=== PATIENT | female | born 1955 | race Caucasian/White ===

== ENCOUNTER 2018-05-27 05:21 | Day surgery (SDC) | payer OTHER ==
[~2018-05-27] VITALS: Ht 160 cm; Wt 72.6 kg
--- NOTE | ~2018-05-27 | O ---
[facility] [place] [address] OPERATIVE REPORT Name: EVELIA COLE Room #: [facility] M.R.#: [id number] Admission: 05/27/18 ������������������ Attend Phys: George Daniel MD Discharge: ������������������ Date of : 55 Report #: [id number] THIS REPORT FOR: //name// CC: LYLE Daniel Physician staff DATE OF SERVICE: 05/27/2018 PREOPERATIVE DIAGNOSES: Chronic cholecystitis with cholelithiasis. POSTOPERATIVE DIAGNOSES: Chronic cholecystitis with cholelithiasis. PROCEDURES PERFORMED: Laparoscopic cholecystectomy with cholangiogram. ANESTHESIA: General. SURGEON: George Daniel M.D. COMPLICATIONS: None. ESTIMATED BLOOD LOSS: 10 mL. DESCRIPTION OF PROCEDURE: With the patient under general anesthesia, abdomen was prepped and draped in a sterile fashion. IV antibiotic was administered and time-out was performed. A 0.25% Marcaine was used to anesthetize the skin at the trocar sites. A curvilinear incision was made infraumbilically. Fascia was identified. Fascia was then grasped with hemostat. Fascia was then opened under visualization, 0 Vicryl suture placed on the fascia edges for retraction. There was a muscle bleeder and this was cauterized. Veress needle was then placed through the peritoneum. Abdominal cavity was insufflated with CO2. After creating pneumoperitoneum at pressure of 15, 11 mm trocar was placed into the pneumoperitoneum, no harm to underlying tissue. Laparoscopic evaluation did not show any abnormality. The patient had a slightly fatty liver. Two 5-mm trocars were placed in the right upper quadrant and a 5-mm trocar was placed in the right epigastrium. Gallbladder was lifted over the liver. The patient's liver did obscure partially the view of the proximal gallbladder. There were adhesions of the stomach up to the proximal gallbladder. These adhesions were taken down. The common bile duct could be visualized most of the way. The cystic duct was dissected free. The gallbladder actually folded on the cystic duct. We were able to straighten it out. The cystic duct was then isolated. A clip was placed in junction of cystic duct to the gallbladder. Opening was made in the cystic duct. Cholangiogram catheter was placed and held with a clip. Fluoroscopic cholangiogram was obtained. The cholangiogram catheter was identified in the cystic duct. Common bile duct filled out well, no filling defect. Dye flowed readily into the duodenum. The cholangiogram catheter was [facility] [address] [place] [address] OPERATIVE REPORT Name: EVELIA COLE Room #: 423-1 [facility] M.R.#: [id number] Admission: 05/27/18 ������������������ Attend Phys: George Daniel MD Discharge: ������������������ Date of : 55 Report #: [id number] then removed. The proximal cystic duct was then clipped x 2 and divided. There was a small artery adjacent to this that was clipped x 2 proximally and then divided with cautery. Further up on the bed, there was a posterior artery. This was also clipped x 2 and divided. Gallbladder was freed from the liver bed. There was some edema in the gallbladder wall. The gallbladder was removed without difficulty. Gallbladder was placed in the specimen bag. The gallbladder was partially removed through the infraumbilical port. Gallbladder was opened and bile suctioned out. An Allis clamp was used to grab the stones. The patient had multiple fairly large stones, 1.3 cm. This was somewhat different than the ultrasound reading which showed her stones were layering out, that one would think that were small stones, but her stones were actually pretty big. Multiple large stones were removed and the gallbladder then came out. Liver bed was checked, hemostasis excellent. Irrigation was performed. Irrigation was aspirated out. Trocars removed. CO2 was evacuated as much as possible. The fascia defect infraumbilically was closed. The muscle bleeder was identified and cauterized again. Hemostasis obtained. Fascia was closed with [id number] 0 Vicryl x 2. Skin was irrigated and closed with 5-0 PDS. Steri-Strips and Band-Aids applied. The patient was taken to the recovery room. ��������������������������������������������� ���������������������������������������� By: ��������������������������������������������� 1228 1307 George Daniel MD /nt
[~2018-05-27 05:21] MED LIST: B12INJ IM; BENTYL 10 MG CA10 M1 PO; CARDIZEM CD240 MG PO; COMBIGAN EYE DR10 ML OPHTHALMIC; GAVISCON ES CH1 EAC1 PO; KETOROLAC TROME10 MG PO; OMEPRAZOLE40 MG PO; SPIRONOLACTONE25 M1 PO; XANAX 0.5 MG0.5 MG PO
[2018-05-27 07:16] LABS: CALCIUM 9.5 mg/dL (8.5-10.1); CREATININE 0.9 mg/dL (0.6-1.0); POTASSIUM 3.6 mmol/L (3.5-5.1)
[2018-05-27 08:25] VITALS: BP 153/95
--- NOTE | 2018-05-27 08:50 | EKG ---
[address] [address] ELECTROCARDIOGRAM REPORT Name: EVELIA COLE Room #: [facility]-[address] [place] [address]..#: [id number] ������������������ Admission: 05/27/18 ������������������ Attend Phys: George Daniel MD Discharge: ������������������ Date of : 55 Report #: [id number] ����������������������������������������������������������������� [id number] THIS REPORT FOR: //name// [facility] Test Date: 2018-05-27 Test Time: 06:46:50 Pat Name: EVELIA COLE Department: Room: [facility] Gender: F Heel Sorter: jocelyn : 1955 Requested By: George Daniel Order Number: [id number] MD: Zeke Nelson Measurements Intervals [place] Rate: 83 P: 53 SD: 166 QRS: 25 QRSD: 94 T: 39 QT: 366 QTc: 430 Interpretive Statements Sinus rhythm Baseline wander in lead(s) II,III,aVR,aVF No previous ECG available for comparison Electronically Signed On 05-27-2018 8:50:07 CDT by Zeke Nelson [email or web address] ��������������������������������������������� <ELECTRONICALLY SIGNED> ���������������������������������������� By: Zeke Nelson MD ��������������������������������������������� 05/27/18 0850 0646 0646 Zeke Nelson MD /JINA
--- NOTE | 2018-05-27 11:55 | H ---
[facility] [address] HISTORY AND PHYSICAL Name: EVELIA COLE Room #: 150-3 [facility] M.R.#: [id number] Admission: 05/27/18 ������������������ Attend Phys: George Daniel MD Discharge: ������������������ Date of : 55 Report #: [id number] THIS REPORT FOR: //name// CC: LYLE Daniel Physician staff DATE OF SERVICE: 05/27/2018 PREOPERATIVE DIAGNOSIS: Cholecystitis with cholelithiasis. HISTORY OF PRESENT ILLNESS: The patient is a 63-year-old who has a known gallbladder disease for about 10 years. The patient has had quite a bit of issues with medication and she has chosen not to have any surgery for the gallbladder until recently when she is having more and more difficulties. The patient has been complaining of epigastric pain going to the right upper quadrant for years. Last Wednesday, the patient had pain and it was more in the right back. She says she has had 5 severe episodes, according to the family she has had more than that. She has constant indigestion, uses Gas-X, Gaviscon and Bentyl. The patient does complain of bloating, no nausea or vomiting, occasional loose stool. The patient has multiple food intolerance to red meats and foods such as pizza and barbecue. The patient is from [place], [place]. She was recommended by Dr. Anderson Jordan to see me for gallbladder surgery. The patient has a daughter who lives in [place], now works at [employer]. The patient's ultrasound shows mild thickening of the gallbladder wall, measuring 6 mm. The patient has multiple layering calculi within the gallbladder. Common bile duct is normal at 4.3 mm. Her liver function tests show mild elevated SGOT and also mild elevation of alkaline phosphatase, normal bilirubin. The patient currently wants to proceed with gallbladder surgery. The patient has had a lot of medication issues when she was young, sodium pentothal, then had issue with Torecan, which made her tongue swell, the patient had trouble with tramadol, caused her to become quite crazy and vomited. She has trouble with Keflex, penicillin is okay. The patient is here for surgery to remove her gallbladder. PAST MEDICAL HISTORY: The patient has had history of Meniere disease, recent issue with her eyes, Eales disease, glaucoma. The patient has had irritable bowel, GERD, high blood pressure, tachycardia. The patient has medical problems from medication allergies or side effect from KEFLEX, SODIUM PENTOTHAL, CODEINE, TRAMADOL, TORECAN, DECONGESTANTS. PAST SURGICAL HISTORY: Includes tonsillectomy, wisdom tooth. MEDICATIONS: Diltiazem 240 daily, omeprazole 40 daily, Xanax 0.25 mg as needed, Bentyl 5 mg, spironolactone [address] [address] HISTORY AND PHYSICAL Name: EVELIA COLE Room #: 150-3 [facility] M.R.#: [id number] Admission: 05/27/18 ������������������ Attend Phys: George Daniel MD Discharge: ������������������ Date of : 55 Report #: [id number] FAMILY HISTORY: There is heart disease, high blood pressure in father. Mother at age 29 from Bright disease. Sibling with heart attack. Kidney disease in mother. SOCIAL HISTORY: The patient is disabled. She does not smoke or drink. REVIEW OF SYSTEMS: The patient is quite anxious. No shortness of breath, chest pain. PHYSICAL EXAMINATION: GENERAL: She is a well-nourished female. She is not in acute distress. HEENT: Her left eye is droopy. NECK: Soft and supple, no masses. LUNGS: Clear. HEART: Regular rate and rhythm. No murmur or gallop. ABDOMEN: Mild tenderness in right upper quadrant. No mass, guarding, rigidity, rebound. No abdominal scar identified. No ascites. EXTREMITIES: No cyanosis, clubbing or edema. IMPRESSION: The patient is a 63-year-old with longstanding history of gallbladder disease and gallstones. The patient has been reluctant to have gallbladder surgery because she has so many side effects from medications. The patient had an episode of pain on Wednesday. She has decided to finally go ahead with surgery. We will discuss with Anesthesia her medication side effects. She does okay with Toradol, we will try to stay away from narcotics. Laparoscopic cholecystectomy was discussed in detail. Risk of common bile duct injury was discussed. Risk of bleeding, infection was discussed. The patient understands the procedure and wishes to proceed. ��������������������������������������������� <ELECTRONICALLY SIGNED> ���������������������������������������� By: George Daniel MD ��������������������������������������������� 05/27/18 1155 [id number] [id number] George Daniel MD /nt
--- NOTE | 2018-05-27 17:00 | NUR ---
PT ARRIVED TO ROOM FROM PACU TEARFUL AND EXPERIENCING NAUSEA AND DIZZINESS DUE TO MENIERE'S DISEASE. DENIES PAIN. NAUSEA AND PAIN MEDS GIVEN ORDERED. AND DAUGHTER AT BEDSIDE. A&O,X4. 3 LAP SITES WITH BAND AID. WILL CONTINUE TO MONITOR.
[2018-05-27 17:56] VITALS: BP 139/81
[2018-05-27 21:05] VITALS: BP 133/77
[2018-05-28] VITALS: BP 140/78
[2018-05-28 04:00] VITALS: BP 126/74
--- NOTE | 2018-05-28 07:55 | NUR ---
ASSUMED CARE AT 1900, ASSESSMENT COMPLETED. PT REPORTED MILD PAIN IN ABD, DENIED NAUSEA BUT REPORTED DIZZINESS ALL NIGHT. DENIED SOA. ABD LAP SITES C/D/I, NO DRAINAGE OR REDNESS NOTED. UTILIZING BEDPAN OVERNIGHT, URINATING WELL BUT BOWEL SOUNDS STILL HYPOACTIVE, PT REPORTS PASSING GAS. IV FLUIDS INFUSING OVERNIGHT. TOLERATED CLEAR LIQUIDS, ADVANCED TO SOFT DIET THIS AM. NO OTHER CONCERNS, SHIFT REPORT GIVEN AT 0700.
[2018-05-28] MEDS ORDERED: KETOROLAC TROME10 MG PO (12:02)
[2018-05-28 12:56] VITALS: BP 126/74
--- NOTE | 2018-05-31 12:06 | PATH ---
[facility] [address] [place] [address] PATHOLOGY RPT PROCEDURE Name: DOUGLASLICHAFABIENNE A Room #: [facility]P [facility]..#: [id number] ������������������ Admission: 05/27/18 ������������������ Date of : 55 Discharge: 05/28/18 Report #: [id number] Path Case #: [id number] [facility] Accession Number: [id number] . 01 Material submitted: . GALLBLADDER . 01 Clinical history: . Cholecystitis . 02 Diagnosis: Gallbladder, cholecystectomy: - Moderate acute and chronic cholecystitis. - Cholelithiasis. (IUV:pit 05/30/2018) QTP/05/30/2018 . 02 Electronically signed: . Loreto Young MD, Pathologist NPI- [id number] . 01 Gross description: . The specimen is received in formalin, labeled "Fabienne Cole gallbladder". Received is a previously opened gallbladder measuring 8.4 x 3.4 x 1.1 cm in greatest dimensions displaying pink-rojas serosal surfaces. Further opening of the gallbladder reveals a velvety, pink-rojas mucosa with a gallbladder wall thickness of 0.1 cm. Calculi are present displaying a green and multifaceted appearance, and no masses or lesions are noted grossly. Director Epidemiology sections, to include the proximal margin, are submitted in cassette A1. (CAA; 05/27/2018) QAC/QAC . 02 Pathologist provided ICD-10: K80.12 . 02 CPT . 067533 Specimen Comment: A courtesy copy of this report has been sent to Specimen Comment: [phone], . Specimen Comment: Report sent to / DR SOTO Performed at: 01 [place] [id number] [id number] MD Alfredo Julien MD Phone: [phone] Performed at: 02 [facility] [address] [place] [address] PATHOLOGY RPT PROCEDURE Name: FABIENNE COLE Room #: [facility]P [facility]..#: [id number] ������������������ Admission: 05/27/18 ������������������ Date of : 55 Discharge: 05/28/18 Report #: [id number] Path Case #: [id number] [address] [place], [place] [id number] MD Loreto Young MD Phone: [phone]
== END 2018-05-28 13:35 | disposition home or self-care (01) ==
LOC: TBA 05:21 → OR 05:21 → 4E 16:59 → OR 05-28 13:35
PROVIDERS: Surgery
DX: K80.10 Calculus of gallbladder with chronic cholecystitis without obstruction (principal); I10 Essential (primary) hypertension; E78.5 Hyperlipidemia, unspecified; F41.9 Anxiety disorder, unspecified; H40.9 Unspecified glaucoma; K21.9 Gastro-esophageal reflux disease without esophagitis; Z98.890 Other specified postprocedural states; Z88.8 Allergy status to other drugs, medicaments and biological substances; Z79.899 Other long term (current) drug therapy
CPT/HCPCS: 10783; 50010; 50101; 50411; 50555; 50558; 51489; 53307; 53310; 53312; 55245; 55317; 56462; 56525; 56526; 62110; 62900; 70005